=== PATIENT | female | born 1995 | race Caucasian/White ===

== ENCOUNTER 2021-12-26 02:00 | Inpatient (IN) | payer OTHER ==
[2021-12-26] MEDS: ELECTROLYTE-148 SOLN 1,000 ML IV SCH ×3 (03:00→15:00)
[2021-12-26] MEDS ORDERED: AMPICILLIN SODIUM 2 GM VIAL ONE (03:40)
[2021-12-26] MEDS ORDERED: AMPICILLIN - 2 GM in SODIUM CHLORIDE 100 ML IVPB ONE (04:00)
[2021-12-26 04:02] VITALS: BMI 47.6
[2021-12-26 04:49] LABS: BASO % 0.4 % (0-2.0); EOS % 0.9 % (0-4.5); HEMATOCRIT 36.9 % (32.4-45.2); HEMOGLOBIN 12.3 GM/dL (10.7-15.3); LYMPH % 24.4 % (8-40); MCH 27.6 pg (25.7-33.7); MCHC 33.3 g/dl (32.0-36.0); MEAN CELL VOLUME 82.7 fl (80-96); MEAN PLT VOLUME 9.4 fl (7.5-11.1); NEUT % 68.3 % (42.8-82.8); PLATELET COUNT 329 10^3/uL (134-434); RBC 4.46 M/mm3 (3.60-5.2); RDW 14.7 % (11.6-15.6)
[2021-12-26 04:52] LABS: INR 1.03 (0.83-1.09); PROTHROMBIN TIME (PATIENT) 11.8 SEC (9.7-13.0)
[2021-12-26 04:54] LABS: ACTIVATED PTT 26.7 SECONDS (25.2-36.5)
[2021-12-26 04:55] LABS: ALBUMIN 2.8 g/dl (3.4-5.0); BLOOD UREA NITROGEN 5.5 mg/dL (7-18); CALCIUM 8.9 mg/dL (8.5-10.1)
[2021-12-26 04:59] LABS: CREATININE 0.5 mg/dL (0.55-1.3)
[2021-12-26 05:00] LABS: BILIRUBIN,TOTAL 0.5 mg/dL (0.2-1); TOT PROT 6.6 g/dl (6.4-8.2)
[2021-12-26 05:01] LABS: EPI CELLS >36 /uL (0-25.1); HYALINE CASTS 91 /uL (0-3.1); URINE APPEARANCE CLOUDY; URINE BACTERIA 524 /uL (0-1359); URINE BILIRUBIN NEGATIVE (NEGATIVE); URINE COLOR YELLOW; URINE GLUCOSE (UA) NEGATIVE (NEGATIVE); URINE KETONE TRACE (NEGATIVE); URINE LEUK ESTERASE 1+ (NEGATIVE); URINE NITRITE NEGATIVE (NEGATIVE); URINE PROTEIN TRACE (NEGATIVE); URINE RBC 289 /uL (0-23.9); URINE UROBILINOGEN 0.2 mg/dL (0.2-1.0); URINE WBC 35 /uL (0-25.8)
[2021-12-26 05:05] LABS: COCAINE, UR NEGATIVE (NEGATIVE); OPIATES, URI NEGATIVE (NEGATIVE); URINE BARBITURATES NEGATIVE (NEGATIVE)
[2021-12-26 05:06] LABS: METHADONE, UR NEGATIVE (NEGATIVE); PHENCYCLIDINE,URINE NEGATIVE (NEGATIVE); URINE BENZODIAZEPINES NEGATIVE (NEGATIVE)
[2021-12-26 05:34] LABS: URINE AMPHETAMINES NEGATIVE (NEGATIVE)
[2021-12-26] MEDS: OXYTOCIN 30 UNITS in 0.9% NS 30 UNIT/500 ML INFUS.BAG IVPB SCH (06:30)
[2021-12-26] MEDS ORDERED: OXYTOCIN 30 UNITS in 0.9% NS 30 UNIT/500 ML INFUS.BAG IVPB ONE (06:30)
[2021-12-26] MEDS ORDERED: PROMETHAZINE HCL 25 MG/1 ML VIAL IVPB ONE (07:20)
[2021-12-26] MEDS ORDERED: BUTORPHANOL TARTRATE 1 MG/ML VIAL IVPB PRN (07:20)
[2021-12-26] MEDS ORDERED: SODIUM CHLORIDE IVPB SCH (08:00)
[2021-12-26] MEDS ORDERED: AMPICILLIN IVPB SCH (08:00)
[2021-12-26] MEDS: AMPICILLIN - 1 GM in SODIUM CHLORIDE 100 ML IVPB SCH ×4 (08:30→20:30)
[2021-12-26] MEDS ORDERED: AMPICILLIN SODIUM 1 GM VIAL ONE ×4 (08:31→20:26)
[2021-12-26] MEDS ORDERED: FENTANYL/BUPIVACAINE/NS/PF - PCEA - 50 ML DISP.SYRIN EP ONE ×3 (13:57→22:19)
[2021-12-26] MEDS: FENTANYL/BUPIVACAINE/NS/PF - PCEA - 50 ML DISP.SYRIN EP SCH ×3 (14:30→22:20)
[2021-12-26] MEDS ORDERED: NALOXONE HCL 0.4 MG/ML VIAL IVPUSH PRN (15:30)
[2021-12-27] MEDS ORDERED: AMPICILLIN SODIUM 1 GM VIAL ONE ×2 (00:19→04:45)
[2021-12-27] MEDS: AMPICILLIN - 1 GM in SODIUM CHLORIDE 100 ML IVPB SCH ×3 (00:20→10:57)
[2021-12-27] MEDS ORDERED: FENTANYL/BUPIVACAINE/NS/PF - PCEA - 50 ML DISP.SYRIN EP ONE ×2 (02:27→06:17)
[2021-12-27] MEDS ORDERED: CITRIC ACID/SODIUM CITRATE 30 ML UNIT-DOSE CUP PO ONE (06:31)
[2021-12-27] MEDS ORDERED: ceFAZolin SODIUM 1 GM VIAL ONE (08:19)
[2021-12-27] MEDS ORDERED: morphine SULFATE/PF 1 MG/2 ML (2cc Syringe - QUVA) ONE (08:30)
[2021-12-27] MEDS ORDERED: ONDANSETRON 4 MG/2 ML VIAL IVPUSH PRN (09:01)
[2021-12-27] MEDS ORDERED: DEXAMETHASONE SOD PHOSPHATE 4 MG/1 ML VIAL ONE (09:03)
[2021-12-27] MEDS ORDERED: ACETAMINOPHEN 1000 MG/100 ML BAG IVPB ONE (09:03)
[2021-12-27] MEDS ORDERED: SODIUM BICARBONATE 8.4% 50 MEQ/50 ML VIAL ONE (09:05)
[2021-12-27] MEDS ORDERED: OXYTOCIN 10 UNITS/ML VIAL ONE ×2 (09:13→09:14)
[2021-12-27] MEDS ORDERED: METHYLERGONOVINE MALEATE 0.2 MG/1 ML AMP IM PRN (09:17)
[2021-12-27] MEDS ORDERED: ACETAMINOPHEN 325 MG TABLET (FP) PO PRN (09:17)
[2021-12-27] MEDS ORDERED: IBUPROFEN 800 MG/8 ML IJ IVPB PRN (09:18)
[2021-12-27] MEDS ORDERED: OXYTOCIN 20 UNITS in 0.9% NS 20 UNIT/1,000 ML INFUS.BAG IV SCH (09:30)
[2021-12-27 09:51] LABS: CORD HCO3 24.3 mmHg (20-29); CORD PCO2 52.6 mmHg (30-78); CORD pH 7.283 (7.14-7.44)
[2021-12-27 10:00] LABS: CORD HCO3 22.6 mmHg (20-29); CORD PCO2 49.5 mmHg (30-78); CORD pH 7.278 (7.14-7.44)
[2021-12-27] MEDS ORDERED: ceFAZolin 2 GRAM PREMIX BAG IVPB SCH (10:00)
[2021-12-27] MEDS ORDERED: OXYTOCIN 20 UNITS in 0.9% NS 20 UNIT/1,000 ML INFUS.BAG IV ONE (10:44)
[2021-12-27] MEDS: OXYTOCIN 30 UNITS in 0.9% NS 30 UNIT/500 ML INFUS.BAG IVPB SCH (10:58)
[2021-12-27] MEDS: ELECTROLYTE-148 SOLN 1,000 ML IV SCH (11:39)
[2021-12-27] MEDS: CEFAZOLIN SODIUM 2 GM in DEXTROSE 5%-WATER 100 ML IVPB SCH ×2 (12:43→20:22)
[2021-12-27] MEDS ORDERED: oxyCODONE HCL 5 MG TABLET PO PRN ×2 (21:17)
[2021-12-28] MEDS: SIMETHICONE 80 MG TAB.CHEW (FP) PO PRN (02:07)
[2021-12-28] MEDS: IBUPROFEN 600 MG TABLET (FP) PO PRN ×3 (02:07→17:45)
[2021-12-28] MEDS: CEFAZOLIN SODIUM 2 GM in DEXTROSE 5%-WATER 100 ML IVPB SCH (03:46)
[2021-12-28] MEDS: ELECTROLYTE-148 SOLN 1,000 ML IV SCH ×2 (06:28→06:29)
[2021-12-28] MEDS: FENTANYL/BUPIVACAINE/NS/PF - PCEA - 50 ML DISP.SYRIN EP SCH (06:28)
[2021-12-28 08:39] LABS: BASO % 0.2 % (0-2.0); EOS % 0.6 % (0-4.5); HEMATOCRIT 29.3 % (32.4-45.2); HEMOGLOBIN 9.6 GM/dL (10.7-15.3); LYMPH % 21.2 % (8-40); MCH 27.3 pg (25.7-33.7); MCHC 32.7 g/dl (32.0-36.0); MEAN CELL VOLUME 83.2 fl (80-96); MEAN PLT VOLUME 8.8 fl (7.5-11.1); MONO % 7.3 % (3.8-10.2); NEUT % 70.7 % (42.8-82.8); PLATELET COUNT 249 10^3/uL (134-434); RBC 3.52 M/mm3 (3.60-5.2); RDW 14.7 % (11.6-15.6); WHITE BLOOD COUNT 11.8 K/mm3 (4.0-10.0)
[2021-12-28] MEDS ORDERED: BISACODYL 10 MG SUPP.RECT RC PRN (09:17)
[2021-12-28] MEDS: ENOXAPARIN NA (PORCINE) 40 MG/0.4 ML DISP.SYRIN SQ SCH (11:15)
[2021-12-28 22:19] VITALS: RESP 18
[2021-12-29] MEDS: SIMETHICONE 80 MG TAB.CHEW (FP) PO PRN (06:09)
[2021-12-29] MEDS: IBUPROFEN 600 MG TABLET (FP) PO PRN ×3 (06:10→18:27)
[2021-12-29] MEDS ORDERED: DIPHTH,PERTUSS(ACELL),TET 0.5 ML DISP.SYRIN IM ONE (10:00)
[2021-12-29] MEDS: ENOXAPARIN NA (PORCINE) 40 MG/0.4 ML DISP.SYRIN SQ SCH (10:22)
[2021-12-30] MEDS: SIMETHICONE 80 MG TAB.CHEW (FP) PO PRN (00:29)
[2021-12-30] MEDS: IBUPROFEN 600 MG TABLET (FP) PO PRN ×2 (00:29→08:41)
[2021-12-30 07:29] LABS: BASO % 0.1 % (0-2.0); EOS % 2.4 % (0-4.5); HEMATOCRIT 28.8 % (32.4-45.2); HEMOGLOBIN 9.7 GM/dL (10.7-15.3); LYMPH % 32.2 % (8-40); MCH 28.3 pg (25.7-33.7); MCHC 33.7 g/dl (32.0-36.0); MEAN CELL VOLUME 84.1 fl (80-96); MEAN PLT VOLUME 8.5 fl (7.5-11.1); NEUT % 59.3 % (42.8-82.8); PLATELET COUNT 307 10^3/uL (134-434); RBC 3.42 M/mm3 (3.60-5.2); WHITE BLOOD COUNT 9.7 K/mm3 (4.0-10.0)
[2021-12-30 09:20] VITALS: BP 122/71; PULSE 73; TEMP 98.1
[2021-12-30] MEDS: ENOXAPARIN NA (PORCINE) 40 MG/0.4 ML DISP.SYRIN SQ SCH (09:47)
== END 2021-12-30 13:30 | disposition home or self-care (01) | DRG 540 ==
LOC: JLDR 02:00 → J3W 12-27 11:00
PROVIDERS: ADMIT Obstetrics & Gynecology; ATTEND Obstetrics & Gynecology
PROC: 10D00Z1 Extraction of Products of Conception, Low, Open Approach (ICD-10-PCS; principal; 2021-12-27)
DX: O42.12 Full-term premature rupture of membranes, onset of labor more than 24 hours following rupture (principal); O62.1 Secondary uterine inertia; O99.214 Obesity complicating childbirth; E66.01 Morbid (severe) obesity due to excess calories; O99.824 Streptococcus B carrier state complicating childbirth; Z3A.39 39 weeks gestation of pregnancy; Z37.0 Single live birth
CPT/HCPCS: 36415; 36600; 80053; 80307; 81003; 82803; 85025; 85610; 85730; 86762; 86780; 86850; 86900; 86901; 87340; 88307-TC; 90715; C9803-CS; U0003; U0005